=== PATIENT | male | born 1960 | race Caucasian/White ===

== ENCOUNTER → 2020-11-25 | Day surgery (SDC) | payer OTHER ==
[~2020-11-25] MED LIST: CRESTOR10 MG PO; MOBIC7.5 MG PO; NORCO 7.5-3251 EACH PO; NORVASC5 MG PO; PERCOCET 5-3251 EACH PO; PRINIVIL20 MG PO; SINGULAIR10 MG PO; VENTOLIN (2.5 MG/3 M INH
[2020-11-25 07:33] LABS: HCT 41.8 % (42.0-52.0); HGB 14.7 g/dl (13.2-18.0); MCH 32.2 pg (25.0-31.0); MCHC 35.2 g/dL (32.0-36.0); MCV 91.7 fL (78.0-100.0); MPV 10.3 fL (6.0-9.5); RBC 4.56 M/uL (4.70-6.00); RDW 12.5 % (11.5-14.0); WBC 7.5 K/uL (4.0-10.5)
[2020-11-25 08:06] LABS: ALBUMIN 3.6 g/dL (3.4-5.0); BILIRUBIN - TOTAL 0.3 mg/dL (0.2-1.0); CREATININE 0.82 mg/dL (0.67-1.17); GLOBULIN (CALCULATION) 2.8 g/dL; POTASSIUM 3.8 mmol/L (3.5-5.1); TOTAL PROTEIN 6.4 g/dL (6.4-8.2)
== END | disposition home or self-care (01) ==
LOC: FAS 06:34
PROVIDERS: Orthopaedic Surgery
DX: M75.122 Complete rotator cuff tear or rupture of left shoulder, not specified as traumatic (principal); M75.02 Adhesive capsulitis of left shoulder; M19.012 Primary osteoarthritis, left shoulder; I10 Essential (primary) hypertension; E78.00 Pure hypercholesterolemia, unspecified; J44.9 Chronic obstructive pulmonary disease, unspecified; F17.210 Nicotine dependence, cigarettes, uncomplicated; J98.11 Atelectasis; Z88.0 Allergy status to penicillin
CPT/HCPCS: 36415; 71045; 80053; C1713; J0171; J1100; J2250; J2405; J2704; J2795; J7120

== ENCOUNTER 2020-12-20 12:47 | Emergency (ER) | payer OTHER | END 2020-12-20 15:26 | disposition home or self-care (01) | LOC: FER 12:47 | DX: L76.82 Other postprocedural complications of skin and subcutaneous tissue (principal); I10 Essential (primary) hypertension; J45.909 Unspecified asthma, uncomplicated; F17.210 Nicotine dependence, cigarettes, uncomplicated; Z88.0 Allergy status to penicillin; Y83.8 Other surgical procedures as the cause of abnormal reaction of the patient, or of later complication, without mention of misadventure at the time of the procedure | CPT/HCPCS: 93971 ==